=== PATIENT | male | born 1985 | race Hispanic/Latino ===

== ENCOUNTER 2018-10-24 15:53 | Emergency (ER) | payer OTHER ==
[2018-10-24 16:09] VITALS: BMI 26.6
[2018-10-24 16:13] VITALS: TEMP 97.6
[2018-10-24] MEDS ORDERED: Sodium Chloride 0.9% 1,000 ML IV STA (17:09)
--- NOTE | 2018-10-24 17:18 | ED PDOC ---
Arrival/HPI - General Chief Complaint: High Blood Pressure Time Seen by Provider: 10/24/18 16:34 - History of Present Illness Narrative History of Present Illness (Text): 10/24/18 17:18 33 year old M w/ h/o hypertension presenting to the Emergency Room with complaint of elevated blood pressure. Patient reports having intermittent dizziness, photophobia, and increased head pressure. The patient reports taking his metoprolol this morning alongside other medications such as OTC analgesics for the headaches with no resolution in pain. He denies any strenuous physical activity with the onset of his symptoms. He reports a strong family history of hypertension and reports having elevated blood pressure since the age of 23. He denies chest pain, shortness of breath, syncopal episode, abdominal pain, nausea, emesis, or vomiting. Time/Duration: Prior to Arrival Symptom Onset: Gradual Symptom Course: Intermittent Activities at Onset: Rest Context: Home Past Medical History - Provider Review Nursing Documentation Reviewed: Yes - Travel History Have you recently traveled outside [place] w/in the past 3 mons?: No - Infectious Disease Hx of Infectious Diseases: None - Cardiac Hx Hypertension: Yes - Psychiatric Hx Substance Use: No - Anesthesia Hx Anesthesia: No Family/Social History - Physician Review Nursing Documentation Reviewed: Yes Family/Social History: Unknown Family HX Smoking Status: Never Smoked Hx Alcohol Use: Yes Frequency of alcohol use: Socially Hx Substance Use: No Allergies/Home Meds Allergies/Adverse Reactions: Allergies No Known Allergies Allergy (Verified 10/24/18 16:08) Home Medications: Home Meds Medication Instructions Recorded Confirmed Metoprolol Tartrate [Lopressor] 1 tab PO DAILY 10/24/18 10/24/18 Review of Systems - Physician Review All systems were reviewed & negative as marked: Yes - Review of Systems Constitutional: absent: Fevers Eyes: Photophobia. absent: Eye Pain ENT: absent: Hearing Changes, Tinnitus Physical Exam Vital Signs Reviewed: Yes Vital Signs Temp Pulse Resp BP Pulse Ox 10/24/18 16:12 97.6 F 55 L 18 160/99 H 100 Temperature: Afebrile Blood Pressure: Hypertensive Pulse: Bradycardic Respiratory Rate: Normal Appearance: Positive for: Well-Appearing, Non-Toxic, Comfortable Mental Status: Positive for: Alert and Oriented X 3 - Systems Exam Head: Present: Atraumatic, Normocephalic Pupils: Present: PERRL Extroacular Muscles: Present: EOMI Conjunctiva: Present: Normal Mouth: Present: Moist Mucous Membranes Neck: Present: Normal Range of Motion Respiratory/Chest: Present: Clear to Auscultation, Good Air Exchange. No: Respiratory Distress Cardiovascular: Present: Normal S1, S2, Bradycardic Abdomen: Present: Normal Bowel Sounds, Peritoneal Signs. No: Tenderness, Distention Neurological: Present: GCS=15, CN II-XII Intact, Speech Normal Skin: Present: Warm, Dry, Normal Color. No: Rashes Psychiatric: Present: Alert, Oriented x 3, Normal Insight, Normal Concentration Medical Decision Making ED Course and Treatment: 10/24/18 17:44 Impression 33 year old f - EKG Interpretation EKG Interpretation (Text): 10/24/18 17:51 EKG shows Sinus Bradycardia at 51BPM with no ST-elevations/T-wave depressions with no prior comparison. Interpreted by me. Interpreted by ED Physician: Yes Type: 12 lead EKG Disposition/Present on Arrival - Present on Arrival Any Indicators Present on Arrival: No History of DVT/PE: No History of Uncontrolled Diabetes: No Urinary Catheter: No History of Decub. Ulcer: No History Surgical Site Infection Following: None - Disposition Have Diagnosis and Disposition been Completed?: Yes Diagnosis: Headache, Hypertension Disposition: HOME/ ROUTINE Disposition Time: 19:51 Patient Plan: Discharge Patient Problems: Current Active Problems Problem Status Onset Headache Acute Hypertension Acute Condition: IMPROVED Discharge Instructions (ExitCare): High Blood Pressure (DC), Malignant Hypertension (DC) Print Language: TURKMEN Additional Instructions: All medical record entries made by the Scribe were at my direction and personally dictated by me. I have reviewed the chart and agree that the record accurately reflects my personal performance of the history, physical exam, medical decision making, and the department course for this patient. I have also personally directed, reviewed, and agree with the discharge instructions and disposition. Please follow up with the lineman service or work dispatcher in 3-5 days Referrals: Xin Decker MD [Medical Doctor] - Follow up with primary [facility] [place] [[place]] - Follow up with primary Forms: [employer] ([place]ovan), WORK NOTE
[2018-10-24 18:10] LABS: BASO # 0.02 K/mm3 (0.0-2.0); BASO % 0.3 % (0.0-3.0); EOS # 0.1 (0.0-0.7); EOS % 1.2 % (1.5-5.0); GRAN # 3.97 (1.4-6.5); GRAN % 60.4 % (50.0-68.0); HEMOGLOBIN 15.8 g/dL (14.0-18.0); LYMPH # 1.9 (1.2-3.4); LYMPH % 28.5 % (22.0-35.0); MEAN CELL VOLUME 94.4 fl (80.0-105.0); MEAN CORPUSCULAR HEMOGLOBIN 33.1 pg (25.0-35.0); MEAN PLATELET VOLUME 9.7 fl (7.0-11.0); MONO # 0.6 (0.1-0.6); MONO % 9.6 % (1.0-6.0); RBC 4.78 10^6/uL (3.5-6.1); RED CELL DISTRIBUTION WIDTH 12.3 % (11.5-14.5); WHITE BLOOD COUNT 6.6 10^3/uL (4.5-11.0)
[2018-10-24 18:18] LABS: TROPONIN I < 0.01 ng/mL
[2018-10-24 18:19] LABS: ALB/GLOB RATIO 1.5 (1.1-1.8); ALBUMIN 4.9 g/dL (3.0-4.8); ALT/SGPT 84 U/L (7-56); AST/SGOT 56 U/L (17-59); BLOOD UREA NITROGEN 24 mg/dL (7-21); GFR NON-AFRICAN AMERICAN > 60
[2018-10-24 19:48] LABS: BARBITURATES, UR NEGATIVE (NEGATIVE); BENZODIAZEPINES, UR NEGATIVE (NEGATIVE); OPIATES, UR NEGATIVE (NEGATIVE); PHENCYCLIDINE, UR NEGATIVE (NEGATIVE)
[2018-10-24 19:54] LABS: PH,URINE 6.5 (4.7-8.0); URINE BILIRUBIN NEGATIVE (NEGATIVE); URINE BLOOD NEGATIVE (NEGATIVE); URINE GLUCOSE (UA) NEGATIVE (NEGATIVE); URINE LEUKOCYTE ESTERASE NEGATIVE Leu/uL (NEGATIVE); URINE PROTEIN NEGATIVE mg/dL (<30 mg/dL); URINE UROBILINOGEN 0.2 E.U./dL (<1 E.U./dL)
[2018-10-24 19:57] LABS: URINE APPEARANCE CLEAR (CLEAR); URINE COLOR YELLOW (YELLOW)
[2018-10-24 21:06] VITALS: BP 155/96; PULSE 88; RESP 18; O2SAT 98
--- NOTE | 2018-10-25 11:02 | CARD ---
APPROVED REPORT Date of service: 10/24/2018 EKG Measurement Heart [id number] AL [id number] <Conclusion> Sinus bradycardia Otherwise normal ECG
== END 2018-10-24 21:07 | disposition home or self-care (01) ==
LOC: ED 15:53
DX: I10 Essential (primary) hypertension (principal); R51 Headache
CPT/HCPCS: 80053; 80324; 80345; 80346; 80349; 80353; 80358; 80361; 81003; 83992; 84484; 85025; 93005; 96361; 96374; 96375; 99283; J0360; J1885; J2765; J7030